=== PATIENT | female | born 1970 | race African-American/Black ===

== ENCOUNTER 2016-06-04 01:10 | Emergency (ER) | payer MEDICAID ==
[~2016-06-04] VITALS: Ht 165.1 cm; Wt 102.1 kg
[2016-06-04 01:28] VITALS: BP 155/108
--- NOTE | 2016-06-04 01:57 | NUR ---
PT TAKEN TO BED 5
--- NOTE | 2016-06-04 01:57 | NUR ---
Dr. Bernardo evaluating patient at bedside.
--- NOTE | 2016-06-04 02:00 | NUR ---
PT IS A 46/F BIB SELF W/ C/O ABDOMINAL PAIN AND WEAK SINCE YESTERDAY. DENIES ANY N/V/D
[2016-06-04 04:50] VITALS: BP 148/89
--- NOTE | 2016-06-04 04:50 | NUR ---
Patient discharged with v/s stable. Written and verbal after care instructions given and explained. Patient alert, oriented and verbalized understanding of instructions. Ambulatory with steady gait. All questions addressed prior to discharge. ID band removed. Patient advised to follow up with PMD. Rx of MOTRIN 600MG PO, HYDROCHLOROTHIAZIDE 12.5MG PO, AMLODIPINE 2.5MG PO given. Patient educated on indication of medication including possible reaction and side effects. Opportunity to ask questions provided and answered.
== END 2016-06-04 04:50 | disposition home or self-care (01) ==
LOC: MED 01:10
DX: R10.30 Lower abdominal pain, unspecified (principal); I10 Essential (primary) hypertension; R35.0 Frequency of micturition; R39.15 Urgency of urination

== ENCOUNTER 2018-08-27 22:53 | Emergency (ER) | payer MEDICAID ==
[~2018-08-27] VITALS: Ht 165.1 cm; Wt 109.8 kg
[2018-08-27 22:59] VITALS: BP 128/90
--- NOTE | 2018-08-27 23:02 | NUR ---
TO LOBBY A/W BED, AMBULATORY
--- NOTE | 2018-08-27 23:35 | NUR ---
PT CAME IN TO ER WITH C/O PAIN TO THE ABDOMEN REGION. PT DENIES N/V/D. DENIES FEVER. PT HAS SOME PAIN TO PALPATION. PT IS A/O X4. PAIN LEVEL IS 6/10 AT THIS TIME. ER MD MADE AWARE OF STATUS. SAFETEY MEASURES IN PLACE, BED RAILS UP X 2.
[2018-08-28 01:15] VITALS: BP 128/90
--- NOTE | 2018-08-28 01:15 | NUR ---
Patient discharged with v/s stable. Written and verbal after care instructions given and explained. Patient alert, oriented and verbalized understanding of instructions. Ambulatory with steady gait. All questions addressed prior to discharge. ID band removed. Patient advised to follow up with PMD. Rx of MIRALAX WAS given. Patient educated on indication of medication including possible reaction and side effects. Opportunity to ask questions provided and answered.
== END 2018-08-28 01:15 | disposition home or self-care (01) ==
LOC: MED 22:53
DX: K59.00 Constipation, unspecified (principal); Z90.710 Acquired absence of both cervix and uterus
CPT/HCPCS: 81002; 81025; 99284